=== PATIENT | male | born 1990 | race Caucasian/White ===

== ENCOUNTER 2020-03-31 09:28 | Day surgery (SDC) | payer OTHER ==
[~2020-03-31 09:28] MED LIST: Lactated Ringers 1,000 ML IV SCH; Midazolam 1 MG/ML 2 ML SDV ONE; Propofol 200 MG/20 ML SDV ONE; fentaNYL 100 MCG/2 ML SDV ONE
--- NOTE | 2020-03-31 10:18 | PCM.PREANE ---
Preanesthetic Assessment - Anesthesia/Transfusion/Family Hx Anesthesia History: Prior Anesthesia Without Reaction Family History of Anesthesia Reaction: No Transfusion History: No Prior Transfusion(s) Intubation History: Unknown - Review of Systems General: No Symptoms Pulmonary: No Symptoms Cardiovascular: No Symptoms Gastrointestinal: Other (progressively worse GERD) Neurological: No Symptoms Other: Reports: None - Physical Assessment Height: 6 ft 2 in Weight: 100.698 kg ASA Class: 1 Mental Status: Alert & Oriented x3 Airway Class: Mallampati = 1 Dentition: Reports: Normal Dentition Thyro-Mental Finger Breadths: 3 Mouth Opening Finger Breadths: 2 ROM/Head Extension: Full Lungs: Clear to Auscultation, Normal Respiratory Effort Cardiovascular: Regular Rate, Regular Rhythm - Allergies Allergies/Adverse Reactions: Allergies Allergy/AdvReac Type Severity Reaction Status Date / Time No Known Allergies Allergy Verified 03/29/20 08:53 - Blood Blood Available: No - Anesthesia Plan Pre-Op Medication Ordered: None - Acknowledgements Anesthesia Type Planned: MAC Pt an Appropriate Candidate for the Planned Anesthesia: Yes Alternatives and Risks of Anesthesia Discussed w Pt/Guardian: Yes Pt/Guardian Understands and Agrees with Anesthesia Plan: Yes PreAnesthesia Questionnaire HEENT History: Reports: Other (See Below) Other HEENT History: wears glasses Cardiovascular History: Reports: None Respiratory History: Reports: None Gastrointestinal History: Reports: GERD (worsening) Genitourinary History: Reports: None Musculoskeletal History: Reports: None Neurological History: Reports: None Psychiatric History: Reports: None Endocrine/Metabolic History: Reports: None Hematologic History: Reports: None Immunologic History: Reports: None Oncologic (Cancer) History: Reports: None Dermatologic History: Reports: None - Past Surgical History Head Surgeries/Procedures: Reports: None HEENT Surgical History: Reports: Oral Surgery, Tonsillectomy Cardiovascular Surgical History: Reports: None Respiratory Surgical History: Reports: None GI Surgical History: Reports: None Male Surgical History: Reports: None Endocrine Surgical History: Reports: None Neurological Surgical History: Reports: None Musculoskeletal Surgical History: Reports: None Oncologic Surgical History: Reports: None Dermatological Surgical History: Reports: None - SUBSTANCE USE Smoking Status *Q: Never Smoker - HOME MEDS Home Medications: Home Meds Alglutamine 1 tab PO DAILY 03/29/20 [History] Ascorbate Calcium [Vitamin C] 1 tab PO DAILY 03/29/20 [History] Cholecalciferol (Vitamin D3) [Vitamin D3] 1 tab PO DAILY 03/29/20 [History] Pantoprazole Sodium [Protonix] 20 mg PO DAILY 03/29/20 [History] - CURRENT (IN HOUSE) MEDS Current Meds: Current Medications Lactated Ringer's (Ringers, Lactated) 1,000 mls @ 125 mls/hr IV ASDIRECTED HUMA Discontinued Medications Fentanyl (Sublimaze) Confirm Administered Dose 100 mcg .ROUTE .STK-MED ONE Stop: 03/31/20 09:07 Midazolam HCl (Versed 1 Mg/Ml) Confirm Administered Dose 2 mg .ROUTE .STK-MED ONE Stop: 03/31/20 09:06 Propofol (Diprivan 20 Ml) Confirm Administered Dose 200 mg .ROUTE .STK-MED ONE Stop: 03/31/20 09:05
--- NOTE | 2020-03-31 11:03 | PCM.OPNOTE ---
- General Post-Op/Procedure Note Date of Surgery/Procedure: 03/31/20 Operative Procedure(s): Esophagogastroduodenoscopy with gastric biopsy Pre Op Diagnosis: Progressive gastroesophageal reflux disease Post-Op Diagnosis: Mild chronic gastritis. No acute esophagitis. Anesthesia Technique: MAC (ASA I) Primary Surgeon: Benny Menchaca Condition: Good Free Text/Narrative:: DICTATION 134358 CPT CODE 30338
[2020-03-31] MEDS ORDERED: Lactated Ringers 1,000 ML IV SCH (11:15)
--- NOTE | 2020-03-31 11:35 | PCM.POSTAN ---
POST ANESTHESIA ASSESSMENT - MENTAL STATUS Mental Status: Alert, Oriented - VITAL SIGNS Vital Signs: Last Vital Signs Temp 36.7 C 03/31/20 10:00 Pulse 62 03/31/20 11:25 Resp 11 L 03/31/20 11:25 BP 112/76 03/31/20 11:25 Pulse Ox 95 03/31/20 11:25 - RESPIRATORY Respiratory Status: Respiratory Rate WNL, Airway Patent, O2 Saturation Stable - CARDIOVASCULAR CV Status: Pulse Rate WNL, Blood Pressure Stable - GASTROINTESTINAL GI Status: No Symptoms - PAIN Pain Score: 0 - POST OP HYDRATION Hydration Status: Adequate & Stable - OBSERVATIONS Free Text/Narrative:: No anesthesia problems
--- NOTE | 2020-03-31 11:54 | PCM48HPAN ---
Post Anesthesia Note - EVALUATION WITHIN 48HRS OF ANESTHETIC Vital Signs in Normal Range: Yes Patient Participated in Evaluation: Yes Respiratory Function Stable: Yes Airway Patent: Yes Cardiovascular Function Stable: Yes Hydration Status Stable: Yes Pain Control Satisfactory: Yes Nausea and Vomiting Control Satisfactory: Yes Mental Status Recovered: Yes Vital Signs: Last Vital Signs Temp 36.7 C 03/31/20 10:00 Pulse 62 03/31/20 11:25 Resp 11 L 03/31/20 11:25 BP 112/76 03/31/20 11:25 Pulse Ox 95 03/31/20 11:25 - COMMENTS/OBSERVATIONS Free Text/Narrative:: No anesthesia problems
--- NOTE | 2020-03-31 15:02 | OR ---
SURGEON: Benny Menchaca M.D. DATE OF PROCEDURE: 03/31/2020 OPERATION PERFORMED: Esophagogastroduodenoscopy with gastric biopsy. PRIMARY SURGEON: Benny Menchaca MD ANESTHESIA: MAC. ASA CLASSIFICATION: I. PREOPERATIVE DIAGNOSIS: Gastroesophageal reflux disease with progressive heartburn. POSTOPERATIVE DIAGNOSES: Mild chronic gastritis. No hiatal hernia. No significant esophagitis. DESCRIPTION OF PROCEDURE: The patient was taken to the endoscopy room and positioned on the endoscopy table in the supine position. Time-out was called for appropriate identification of the patient and procedure. Monitored anesthesia care was provided. The bite block was placed between the patient's teeth. The gastroscope was inserted through the bite block into the oropharynx and advanced without difficulty through the esophagus and stomach into the duodenum where examination was carried out in a retrograde fashion. The duodenum showed no acute inflammatory changes or ulcerations. The stomach did show mild chronic gastritis. No ulcerations were noted. Antral biopsies were obtained to look for Helicobacter pylori. The gastroscope was then retroflexed to visualize the proximal stomach. No hiatal hernia was noted. The gastroscope was then straightened and slowly withdrawn, carefully visualizing the greater and lesser curvatures. No acute ulcerations or inflammatory changes were noted. The GE junction was well defined and showed no acute esophagitis or erosions. No ulcerations were noted. The esophagus itself demonstrated good contractility. No mid or proximal lesions were identified. As the scope was withdrawn, the vocal cords were briefly visualized and noted to move symmetrically. No vocal cord lesions were identified. The gastroscope was then removed with the patient having tolerated the procedure well. He was subsequently taken to recovery room in stable condition. DRISS / LUIZ /[id number]
== END 2020-03-31 11:50 | disposition home or self-care (01) ==
LOC: MW.SDS 09:28
PROVIDERS: ATTEND Surgery
DX: K29.50 Unspecified chronic gastritis without bleeding (principal); K21.9 Gastro-esophageal reflux disease without esophagitis; Z79.899 Other long term (current) drug therapy; Z83.3 Family history of diabetes mellitus; Z72.89 Other problems related to lifestyle
CPT/HCPCS: 43239; J2250; J2704; J3010; J7120; 88305; 88312

== ENCOUNTER 2022-08-04 05:01 | Emergency (ER) | payer SELFPAY ==
[2022-08-04] MEDS ORDERED: Clindamycin Phosphate in D5W 600 MG in Premix Bag 1 BAG IV ONE ×2 (05:13)
[2022-08-04] MEDS ORDERED: Sodium Chloride 0.9% 1,000 ML IV ONE (05:13)
[2022-08-04 06:04] LABS: BLOOD UREA NITROGEN,BUN 17 mg/dL (7.0-18.0); CARBON DIOXIDE,CO2 30.5 mmol/L (21.0-32.0); CHLORIDE,CL 103 mmol/L (98-107); ESTIMATED GFR 82 mL/min (>60); GLUCOSE RANDOM 94 mg/dL (74-106); POTASSIUM,K 3.7 mmol/L (3.5-5.1); SODIUM,NA 141 mmol/L (136-148)
== END 2022-08-04 06:26 | disposition home or self-care (01) ==
LOC: MW.ED 05:01
DX: L03.012 Cellulitis of left finger (principal); M79.622 Pain in left upper arm; M79.621 Pain in right upper arm; K21.9 Gastro-esophageal reflux disease without esophagitis; Z79.899 Other long term (current) drug therapy; Z20.822 Contact with and (suspected) exposure to COVID-19
CPT/HCPCS: 80053; 85025; 86140; 87635; 96365; 99284; J3490; J7030; 99283; U0002